=== PATIENT | female | born 1960 | race Caucasian/White ===

== ENCOUNTER → 2017-02-13 | Outpatient (CLI) | payer BC ==
[~2017-02-13] MED LIST: ACET-2321 PO; ASPI-917 PO; CHOL500050 PO; GABA-336 PO; NAPR220T61 PO; POLY17PO18 PO; TRAM50TA53 PO
--- NOTE | 2017-02-13 14:49 | DI ---
EXAM: KNEE LEFT 3 VIEWS DATE: 02/13/2017 2:28 PM ENCOUNTER: Subsequent INDICATION: ITS.REASON: M25.562 PAIN IN LEFT KNEE COMPARISON: Left knee radiographs 03/22/2016, left knee MRI 02/01/2016 TECHNIQUE: 3 views of the knee were obtained. FINDINGS: Bony mineralization is normal. Redemonstration of postoperative changes of left total knee arthroplasty. The hardware components appear appropriately aligned without evidence of acute hardware complication. No periprosthetic fracture. No significant joint effusion. No focal radiographically apparent soft tissue swelling seen. No radiopaque foreign body. IMPRESSION: Stable appearing postoperative changes of left total knee arthroplasty without evidence of acute hardware complication or osseous abnormality. .
== END ==
LOC: IMA 14:25
PROVIDERS: ATTEND Orthopaedic Surgery
DX: M25.562 Pain in left knee (principal); Z96.652 Presence of left artificial knee joint

== ENCOUNTER 2017-11-14 07:30 | Inpatient (IN) ==
[~2017-11-14 07:30] MED LIST changes: -ACET-2321 PO; +ACETAMINOPHEN 500 MG TABLET PO ONE; -ASPI-917 PO; -CHOL500050 PO; +DEXAMETHASONE 4 MG/ML INJECTION IVP ONE; +FAMOTIDINE PB 20 MG/50 ML BAG IV ONE; -GABA-336 PO; +LIDOCAINE 1% (10mg/ml) 2mL INJ PF SDV ID ONE; +MELOXICAM 15 MG TABLET PO ONE; +METOCLOPRAMIDE 10mg/2ml INJECTION IVP ONE; -NAPR220T61 PO; +ONDANSETRON 4 MG/2 ML INJECTION IVP ONE; -POLY17PO18 PO; -TRAM50TA53 PO; +TRANEXAMIC ACID 1,000 MG in NS 100 ML IV ONE
[2017-11-14] MEDS ORDERED: EPINEPHrine PF 0.25 MG, BUPIVACAINE 0.25% PF 30 ML, MORPHINE SULFATE 15 MG, KETOROLAC I... OPSITE ONE (08:00)
--- OUTSIDE RECORDS SUMMARY | 2017-11-14 10:41 | External Medical Summary | Continuity of Care Document ---
:[address] [facility] Allergies Active Description Code Type Severity Reaction Onset Reported/ Identified Relationship Clinical to Patient Status Yes No Known No Drug Unknown N/A 10/06/2017 Allergies Known Aller Aller gy gies Medications There is no data. Problems There is no data. Procedures There is no data. Results Test Result Range CBC W/DIFF - 10/06/17 09:10 BASOPHIL # 0.1 k/cumm 0.0-0.2 BASOPHIL % 0.8 % 0-1 EOSINOPHIL # 0.2 k/cumm 0.1-0.5 EOSINOPHIL % 2.9 % 2-4 GRANULOCYTE # 4.6 k/cumm 2.0-9.0 GRANULOCYTE % 59.0 % 50-75 LYMPHOCYTE # 2.2 k/cumm 1.0-4.0 LYMPHOCYTE % 28.6 % 20-30 MEAN CELL HGB 28.2 pg 27.0-33.0 MEAN CELL HGB CONCENTRATION 32.7 g/dL 32.0-37.0 MEAN CELL VOLUME 86.2 fl 80.0-100.0 MONOCYTE # 0.7 k/cumm 0.1-1.0 MONOCYTE % 8.4 % 4-6 MEAN PLATELET VOLUME 10.7 fl 8.5-10.9 RED BLOOD CELL 4.65 m/cumm 4.00-6.00 RED CELL DISTRIBUTION WIDTH 13.4 % 11.0-15.6 WHITE BLOOD CELL 7.8 k/cumm 5.0-10.0 HEMOGLOBIN 13.1 gm/dL 12.0-16.0 HEMATOCRIT 40.1 % 37.0-47.0 NRBC % 0.0 /100 WBC 0.0-0.0 PLATELET COUNT 263 k/cumm 150-400 IMMATURE GRANULOCYTE % 0.3 % 0.0-0.6 IMMATURE GRANULOCYTE # 0.02 k/cumm 0.00-0.09 PROTHROMBIN TIME WITH INR - 10/06/17 09:10 INTERNATIONAL NORMAL RATIO 1.1 0.9-1.1 PROTHROMBIN TIME 12.3 sec 10.0-12.8 METABOLIC PANEL, COMPREHN - 10/06/17 09:10 POTASSIUM 3.6 mmol/L 3.5-5.3 EST GFR (MDRD) > 60 mL/min > 59 ANION GAP 11 mmol/L 5-15 GLUCOSE 97 mg/dL 70-99 CALCIUM 8.9 mg/dL 8.5-10.1 BLOOD UREA NITROGEN 16 mg/dL 7-20 CREATININE 0.7 mg/dL 0.6-1.0 SODIUM 142 mmol/L 135-148 CHLORIDE 107 mmol/L 98-110 AST/SGOT 23 Units/L 10-37 ALT/SGPT 28 Units/L < 66 CARBON DIOXIDE 24 mmol/L 21-32 TOTAL PROTEIN 8.0 gm/dL 6.4-8.2 ALBUMIN 3.9 gm/dL 3.4-5.0 BILI TOTAL 0.4 mg/dL 0.0-1.0 ALKALINE PHOSPHATASE TOTAL 141 IU/L 45-117 Encounters ACCT Visit Discharge Status Pt. Type Provider Facility Loc./Unit Complaint No. Date/Time [id number] 10/06/2017 10/06/2017 [id number] 08:25:00 13:05:00 , [facility]
[2017-11-14 11:04] VITALS: BP 165/74; PULSE 87; RESP 14; TEMP 98.1; O2SAT 98; BMI 38.8
[2017-11-14] MEDS ORDERED: SALINE FLUSH 10ml SYRINGE IV PRN (13:02)
[2017-11-14] MEDS ORDERED: NOZIN NASAL SWAB NAS SCH (13:15)
[2017-11-14] MEDS ORDERED: LR 1,000 ML IV SCH (16:00)
== END 2017-11-14 11:15 | disposition home or self-care (01) | DRG 561 ==
LOC: NMC.PERIOP 10:33 → UNDODISIN 11:15
PROVIDERS: ADMIT Orthopaedic Surgery; ATTEND Orthopaedic Surgery

== ENCOUNTER 2017-11-21 09:50 | Inpatient (IN) ==
--- NOTE | 2017-12-20 17:34 | History and Physical ---
CHIEF COMPLAINT Left knee pain. HPI This is a 57-year-old lady that had a left total knee replacement in March 2016. Following surgery she developed arthrofibrosis with considerable stiffness of the left knee. She has tried aggressive physical therapy, anti-inflammatory medications and other modalities but has failed to obtain adequate range of motion of the knee. She has considerable anterior knee pain with any type of knee flexion. In general, she is moderately disabled as a result of her pain and stiffness. Her x-rays are essentially unremarkable. A bone scan was done and does not suggest loosening or infection. Due to her persistent pain and lack of response to conservative measures she is being admitted for elective left total knee revision. ALLERGIES No known drug allergies. ILLNESSES History of CRPS as well as chronic osteoarthritis. PAST SURGICAL HISTORY Arthroscopy of the knee. Cholecystectomy. Hysterectomy. Left total knee in March 2016. . FAMILY HISTORY/SOCIAL HISTORY Unchanged from a copy of dictation in the chart. REVIEW OF SYSTEMS REVIEW OF SYSTEMS Constitutional: Negative for chills, fever, fatigue, malaise, or weight loss. HEENT: Negative for headache, or dizziness. Respiratory: Negative for cough, shortness of air, recent respiratory infections, or wheezing. Cardiovascular: Negative for chest pain, palpitations, leg swelling, or syncope. Gastrointestinal: Negative for abdominal pain, constipation, diarrhea, vomiting , heartburn, or nausea. Skin: Negative for skin infection or rash. Neurological: Negative for numbness of extremity or seizures. Psychiatric: Negative for anxiety or depression. Hematologic/Lymphatic: Negative for easy bleeding or easy bruising. PHYSICAL EXAM GENERAL: A well-developed, well-nourished 57-year-old female in no acute distress. PSYCHOLOGIC: Alert and oriented with normal mood and affect. SKIN: Well-healed scar over the anterior aspect of the knee. No erythema, warmth or signs of infection. CARDIOVASCULAR: She has good pulses involving the lower extremity. No other abnormalities. No edema. NEUROLOGIC: Intact with normal sensation. Good sensory and motor function. MUSCULOSKELETAL: The right knee is tender over the anterior aspect of the knee. She has 0-100 degrees range of motion. Ligamentous-blas she is very stable. Alignment of the knee is neutral. IMPRESSION 1. 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 2. History of CRPS. PLAN Dr. Calderon has met with the patient and discussed the surgical procedure as well as alternative treatments, potential complications and other questions related to this surgery. The patient is aware that she may continue to have knee pain following revision. Will plan to proceed with a left total knee revision on 05/2018. JULITO
[2017-12-26] MEDS ORDERED: MELOXICAM 15 MG TABLET PO ONE (06:00)
[2017-12-26] MEDS ORDERED: ACETAMINOPHEN 500 MG TABLET PO ONE (06:00)
[2017-12-26] MEDS ORDERED: TRANEXAMIC ACID 1,000 MG in NS 100 ML IV ONE ×2 (06:00→07:00)
[2017-12-26] MEDS ORDERED: LIDOCAINE 1% (10mg/ml) 2mL INJ PF SDV ID ONE (06:00)
[2017-12-26] MEDS ORDERED: FAMOTIDINE PB 20 MG/50 ML BAG IV ONE (06:00)
[2017-12-26] MEDS ORDERED: DEXAMETHASONE 4 MG/ML INJECTION IVP ONE (06:00)
[2017-12-26] MEDS ORDERED: METOCLOPRAMIDE 10mg/2ml INJECTION IVP ONE (06:00)
[2017-12-26] MEDS ORDERED: ONDANSETRON 4 MG/2 ML INJECTION IVP ONE (06:00)
[2017-12-26] MEDS ORDERED: EPINEPHrine PF 0.25 MG, BUPIVACAINE 0.25% PF 30 ML, KETOROLAC INJ 60 MG in NS 30 ML OPSITE ONE (08:00)
--- OUTSIDE RECORDS SUMMARY | 2017-12-26 10:12 | External Medical Summary | Continuity of Care Document ---
:1960 Author Organization [facility] Allergies Active Description Code Type Severity Reaction [...] Type Provider Facility Loc./Unit Complaint No. Date/Time [id number] 10/06/2017 10/06/2017 [id number] 13:05:00 , [facility]
[2017-12-26] MEDS ORDERED: CEFAZOLIN 1 G INJECTION IVP ONE (10:22)
[2017-12-26 10:30] VITALS: BMI 38.4
[2017-12-26] MEDS: LR 1,000 ML IV SCH ×2 (11:06→13:00)
[2017-12-26] MEDS: NOZIN NASAL SWAB NAS SCH ×5 (11:08→21:21)
--- NOTE | 2017-12-26 12:07 | Anesthesia Preoperative Report ---
Anesthesia Preoperative Record - Date and Time Date: 12/26/17 Preoperative Diagnosis: Total Knee Arthroplasty Revision for the Patella, Proposed Procedure: left total knee replacement NPO Since Date: 12/25/17 NPO Since Time: 23:00 Allergies/Adverse Reactions: Allergies Allergy/AdvReac Type Severity Reaction Status Date / Time No Known Allergies Allergy Verified 11/06/17 11:17 - Vital Signs Vital Signs: Temperature 98.6 F 12/26/17 10:29 Pulse Rate 81 12/26/17 10:42 Respiratory Rate 14 12/26/17 10:29 Blood Pressure 149/70 H 12/26/17 11:18 Pulse Oximetry 100 12/26/17 10:29 Height and Weight: Height 1.6 m Weight 98.3 kg Body Mass Index 38.4 - Medications Inpatient Medications: Current Medications Lactated Ringer's (Lactated Ringers) 1,000 mls @ 50 mls/hr IV .Q20H ELIZABETH Last Admin: 12/26/17 11:06 Dose: 50 mls/hr Isopropyl Alcohol (Nozin Nasal Swab) 1 each BRANDI Q1M ELIZABETH Stop: 12/26/17 15:33 Last Admin: 12/26/17 11:18 Dose: 1 each Sodium Chloride (Iv Flush) 10 - 80 ml IV PRN PRN PRN Reason: Flushing Home Medications: Home Medications Medication Instructions Recorded Confirmed Type Aleve (Naproxen) 220 mg capsule 220 mg PO BID PRN 05/17/17 12/26/17 History ergocalciferol (vitamin D2) 50,000 50,000 unit PO DAILY #2 cap 11/06/17 Rx unit capsule - Medical History Respiratory: DENIES: Sleep Apnea Gastrointestional: Reports: Gastroesophageal Reflux Disease (RARE), Morbid Obesity Neuro/Musculoskeletal: Reports: HX.MS.OSAR (KNEES) - Surgical History Cardiac Surgeries/Treatments: Reports: Cardiac Catheterization (THOUGHT PULSE WAS WEAK-NON CARDIAC-OCT 2017) GI Surgery/Treatments: Reports: Appendectomy, Cholecystectomy (lap), Hernia Repair (umb hernia repair), Colonoscopy (tubular adenoma), EGD, Other (inc biopsy Lt upper back) Musculoskeletal Surgery/Tx: Reports: Knee Arthroscopy (left), Total Knee Replacement (left TKA 2015) Reproductive Surgery/Treatment: Reports: Section (x2), Hysterectomy ( abdominal) Anesthesia Reactions: None Hx Family Anesthesia Reaction: No - Social History Smoking Status: Never smoker Substance Use Type: does not use Alcohol Intake Frequency: holidays/special occasions only - Pertinent Findings EKG: Sinus Rhythm - Physical Exam Respiratory Exam: Present: lungs clear, bilateral breath sounds equal Cardiovascular Exam: Present: regular rate and rhythm, no murmur - Airway Assessment Mallampati Score: III TMD: 2 Fingerbreadths Neck Extension: good Overall Assessment: may be difficult intubation - ASA ASA Score: 3 - Plan Regional/Trunk Block: Spinal Peripheral Nerve Block: Saphenous-Left - Discussion Discussion: Discussed risks/options/alternatives of anesthesia and questions answered. Patient consents. Nursing pain assessment noted. Attestation Statement: Prior to the delivery of any anesthetic medication, I examined the patient, developed the plan, obtained the patient's consent and discussed the risk and benefits of the procedure with the patient/guardian. - Additional Information Seen by Anesthesia: Yes
[2017-12-26] MEDS ORDERED: VANCOMYCIN 1,000 MG INJECTION ONE (12:12)
[2017-12-26] MEDS ORDERED: PROPOFOL 20 ML ONE (12:17)
[2017-12-26] MEDS ORDERED: MIDAZOLAM 2mg/2ml INJECTION ONE (12:17)
[2017-12-26] MEDS ORDERED: FentaNYL 250 MCG/5 ML INJECTION ONE (12:17)
[2017-12-26] MEDS ORDERED: KETAMINE 500 MG/10 ML INJECTION ONE (12:17)
[2017-12-26] MEDS ORDERED: LIDOCAINE 2% (100mg/5mL) 5ml PF SDV ONE (12:24)
[2017-12-26] MEDS ORDERED: BUPIVACAINE 0.75%/DEXTROSE 8.5% SPINAL 2 ML AMPULE IJ ONE (12:24)
--- NOTE | 2017-12-26 12:50 | Anesthesia Procedure Note ---
Peripheral Nerve Blockade - Procedure Physician: Dhaval Calderon MD Date: 12/26/17 Surgical Procedure: left total knee arthroplasty Discussion: Discussed risks/options/alternatives of anesthesia and questions answered. Patient consents. Nursing pain assessment noted. Block Start: 11:54 Block Stop: 11:56 Blocked Employed: Adductor Canal Indication: Post-Operative Pain Approach: Left Side Confirmed Position: Supine Patient: Consent, Risks/Benefits Discussed, Informed, Post Block Act. Discussed Initial Vital Signs: Temperature 98.6 F 12/26/17 10:29 Temperature Source Oral 12/26/17 10:29 Pulse Rate 77 12/26/17 10:29 Respiratory Rate 14 12/26/17 10:29 Blood Pressure 163/78 H 12/26/17 10:29 Blood Pressure Mean 106 12/26/17 10:29 Blood Pressure Position Sitting 12/26/17 10:29 Pulse Oximetry 100 12/26/17 10:29 Oxygen Delivery Method 12/26/17 10:29 Post Vital Signs: Temperature 98.6 F 12/26/17 10:29 Pulse Rate 81 12/26/17 10:42 Respiratory Rate 14 12/26/17 10:29 Blood Pressure 149/70 H 12/26/17 11:18 Pulse Oximetry 100 12/26/17 10:29 Initial Pain Pain Score: 0 Post Block Pain Score: 0 Prep: Chlorhexadine/ETOH Ultrasound Used?: Yes - Injectate Ropivacaine (%): 0.5 Ropivacaine (mL): 15 Injection: Injection made incrementally with constant monitoring and aspiration every ml
--- NOTE | 2017-12-26 12:51 | Anesthesia Postoperative Note ---
- Date and Time Date: 12/26/17 Time: 12:05 - Status Patient Participated in Evaluation: Patient Participated in Person Vital Signs: Temperature 98.6 F 12/26/17 10:29 Pulse Rate 81 12/26/17 10:42 Respiratory Rate 14 12/26/17 10:29 Blood Pressure 149/70 H 12/26/17 11:18 Pulse Oximetry 100 12/26/17 10:29 Respiratory Function: Airway Patent Cardiovascular Function: Regular Pulse EKG: Sinus Rhythm Mental Status: Alert and Oriented Pain Intensity: 0 Hydration: IV Infusing Complications During Recover: None Apparent - Follow-Up Instructions Instructions: Per Surgeon
[2017-12-26] MEDS ORDERED: FentaNYL 100 MCG/2 ML INJECTION IVP PRN (13:38)
[2017-12-26] MEDS ORDERED: ONDANSETRON 4 MG/2 ML INJECTION IVP PRN ×2 (13:38→14:56)
[2017-12-26] MEDS ORDERED: ROPIVACAINE 0.5% (5mg/ml) 30ml INJ ONE (13:42)
[2017-12-26] MEDS ORDERED: VANCOMYCIN 1,000 MG INJECTION IAR ONE (13:55)
--- NOTE | 2017-12-26 14:47 | XRay Report ---
Indication: postoperative image PROCEDURE: XR knee LT 2V: Encounter: Initial Comparison: February 13, 2017 Findings: Postoperative changes of left total knee revision are seen. There is expected postoperative subcutaneous gas. No evidence of hardware failure or acute fracture. No retained radiopaque surgical instruments or sponges. Overlying material causing artifact. Impression: Revision of the left total knee prosthesis without evidence of immediate complication. .
[2017-12-26] MEDS ORDERED: DiphenhydrAMINE 25 MG CAPSULE PO PRN (14:56)
[2017-12-26] MEDS ORDERED: DiphenhydrAMINE 50 MG/ML INJECTION IVP PRN (14:56)
[2017-12-26] MEDS ORDERED: LORazepam 1 MG TABLET PO PRN (14:56)
[2017-12-26] MEDS ORDERED: Oxycodone *IR* 5 MG TABLET PO PRN (14:56)
[2017-12-26] MEDS ORDERED: NOZIN NASAL SWAB NAS ONE (14:56)
[2017-12-26] MEDS: NS 1,000 ML IV SCH (14:58)
[2017-12-26] MEDS ORDERED: SALINE FLUSH 10ml SYRINGE IV PRN (15:16)
--- NOTE | 2017-12-26 16:22 | Operative Note ---
DATE OF SURGERY 12/26/2017 PREOPERATIVE DIAGNOSIS Painful left total knee arthroplasty with arthrofibrosis. POSTOPERATIVE DIAGNOSIS Painful left total knee arthroplasty with arthrofibrosis. OPERATION Left total knee arthroplasty patella revision with excision of scar tissue. SURGEON Dayanna Calderon MD CURRICULUM COACH Marko Verduzco PA-C COMPLICATIONS None. ANESTHESIA Spinal. DESCRIPTION OF PROCEDURE Mrs. Eugene and her left knee were identified and marked in the preoperative holding area. She was brought back to the operating suite and placed supine on the operating table. Spinal anesthetic was administered before she was laid flat. The left lower extremity was prepped and draped in my normal sterile fashion. Time-out was performed. I took the knee through a range of motion - she was nice and stable and had full extension. No mid flexion instability was noted. I could flex her easily to 95 degrees without any undue force. I then made an anterior midline incision through her previous incision site. Sharp dissection was carried through the subcutaneous tissue down to the capsule and a medial parapatellar capsulotomy was performed. She did have abundant scar tissue within the joint itself which was removed sharply and also with electrocautery. Scar tissue around the patella was also removed. The patella itself seemed to be in good position and intact without signs of loosening. Both femoral and tibial components as well as the plastic also seemed to be in good condition. Again, she really did appear well balanced and she tracked well throughout range of motion. I placed a Simon medially and laterally with the knee in 90 degrees of flexion and she had good 1-2 mm of play. It was well balanced. Her PCL was not too tight. I then measured her patella construct and it measured 23 mm. I then removed the old patella with a saw and took off another 2 mm with the saw. I then placed a new 29-mm patella. Overall measurement was 21 mm and did seem to help with her motion. I could get her back to 110-115 degrees after removal of scar tissue and resurfacing the patella. The wound was thoroughly irrigated. The new patella was cemented into position and allowed to cure in extension. Electrocautery was used to obtain hemostasis. Joint cocktail was injected into the soft tissue. The capsulotomy was repaired with #1 Vicryl. Subcutaneous tissue was closed with 2-0 Vicryl and the skin was closed with a running 2-0 Monoderm. A sterile dressing will be placed. Drapes will be removed and she will be taken to the recovery room under the care of Anesthesia. She tolerated the procedure well. There were no complications. JULITO
[2017-12-26] MEDS: ACETAMINOPHEN 325 MG TABLET PO SCH ×2 (16:34→20:57)
[2017-12-26] MEDS: GABAPENTIN 100 MG CAPSULE PO SCH ×2 (16:34→20:57)
[2017-12-26] MEDS: CEFAZOLIN 2 G in NS 50 ML IV SCH (20:56)
[2017-12-26] MEDS: NAPROXEN 220 MG TABLET PO SCH (20:57)
[2017-12-26] MEDS: DOCUSATE SODIUM 100 MG CAPSULE PO SCH (20:57)
[2017-12-26] MEDS: ASPIRIN *EC* 81 MG TABLET PO SCH (20:58)
[2017-12-26] MEDS ORDERED: SENNOSIDES 8.6 MG TABLET PO SCH (21:00)
[2017-12-27] MEDS: NS 1,000 ML IV SCH (03:54)
[2017-12-27] MEDS: CEFAZOLIN 2 G in NS 50 ML IV SCH (03:54)
[2017-12-27] MEDS: NOZIN NASAL SWAB NAS SCH ×2 (05:13→13:20)
[2017-12-27 07:35] VITALS: RESP 16
--- NOTE | 2017-12-27 08:41 | Orthopedic Progress Note ---
Date: Date: 12/27/17 Time: 837 Subjective/Severity of Illness: Patient is up ambulating when visiting this morning. Pain has been well controlled. Denies chest pain, soa, or any other complaints. Exam - Constitutional Vital Signs: Temperature 97.8 F 12/27/17 07:34 Pulse Rate 76 12/27/17 07:34 Respiratory Rate 16 12/27/17 07:34 Blood Pressure 103/48 12/27/17 07:34 Pulse Oximetry 95 12/27/17 07:34 General: cooperative, no acute distress, well developed, well groomed Nutritional Appearance: well nourished Orientation: alert, oriented x3 - Psych Mood: normal Attitude: cooperative - LLE General: normal to inspection Postoperative Appearance: normal postoperative swelling, knee range of motion normal for postoperative timeframe, neurovascullary intact to extremities Neurological: no deficits Vascular: dorsalis pedis pulse within normal limits - Respiratory Respiratory Exam: non-labored - Cardiac Cardiovascular exam: pedal pulses intact - Wound Left Knee Wound Drainage Amount: None (mepilex dressing c/d/i) - Labs Result Diagrams: 12/27/17 04:05 12/27/17 04:05 Abnormal lab results 12/27/17 Range/Units 04:05 Sodium 145 H (134-144) MEQ/L Chloride 109 H (98-107) MEQ/L Creatinine 0.6 L (0.7-1.2) mg/dL Glucose 144 H (65-110) MG/DL Calculated Osmolality 282 H (261-280) MOSM/KG H & H 12/27/17 Range/Units 04:05 Hgb 12.2 (12-16) GM/DL Orthopedic Assessment and Plan (1) Arthrofibrosis of total knee arthroplasty Status: Acute Assessment and Plan: Current anti-coagulation of ASA 81mg BID x6 weeks and SCDs for VTE prophylaxis. Will plan to titrate Gabapentin for CRPS upon discharge. Expect discharge today. PT/OT services to improve independent function. Discharge Planning per Case Management. - Anticoagulation Therapy Anticoagulation: ASA 81 mg PO BID x6 weeks Hospital Course Summary Disclaimer: The visit summary below is not to be considered part of the above Progress Note.
[2017-12-27] MEDS: ACETAMINOPHEN 325 MG TABLET PO SCH ×2 (08:54→13:20)
[2017-12-27] MEDS: ASPIRIN *EC* 81 MG TABLET PO SCH (08:54)
[2017-12-27] MEDS: NAPROXEN 220 MG TABLET PO SCH (08:54)
[2017-12-27] MEDS: GABAPENTIN 100 MG CAPSULE PO SCH ×2 (08:54→14:30)
[2017-12-27] MEDS: DOCUSATE SODIUM 100 MG CAPSULE PO SCH (08:54)
[2017-12-27] MEDS ORDERED: POLYETHYL GLYCOL 3350 17gm PACKET PO SCH (09:00)
[2017-12-27 12:01] VITALS: BP 136/66; PULSE 63; TEMP 97.6; O2SAT 100
[2017-12-27] MEDS ORDERED: SENNOSIDES 8.6 MG TABLET PO PRN (13:53)
--- NOTE | 2017-12-27 14:40 | Discharge Summary ---
Orthopedic Discharge Info Date of admission: 12/26/17 10:05 Anticipated date of discharge: 12/27/17 Primary care physician: Issac Osorio DO Attending Physician: Dhaval Calderon MD Consults: 12/26/17 10:20 Consult to Anesthesiology [CONS] Routine Reason For Exam: Preoperative Assessment 12/26/17 14:56 Case Management Consult [CONS] Routine Reason For Exam: Discharge Planning DME-Walker [CONS] Routine Height: 5 ft 3 in Weight: 98.3 kg Total Joint Outpatient Therapy [CONS] Routine Comment: Remove dressing in 2 weeks - Discharge Diagnosis (1) Arthrofibrosis of total knee arthroplasty Status: Acute - Procedures Procedures: Procedures Replacement of Left Knee Joint with Synthetic Substitute, Cemented, Open Approach (03/22/16) - Laboratory Result Diagrams: 12/27/17 04:05 12/27/17 04:05 Laboratory: Abnormal lab results 12/27/17 Range/Units 04:05 Sodium 145 H (134-144) MEQ/L Chloride 109 H (98-107) MEQ/L Creatinine 0.6 L (0.7-1.2) mg/dL Glucose 144 H (65-110) MG/DL Calculated Osmolality 282 H (261-280) MOSM/KG H & H 12/27/17 Range/Units 04:05 Hgb 12.2 (12-16) GM/DL Orthopedic Discharge HPI - HPI Comments This patient was admitted for elective surgical tx of end stage degenerative joint disease that failed to respond to conservative treatment. Further details of this is found in the admission H&P. Orthopedic Hospital Course Hospital course: 12/27/17 14:33 After appropriate preoperative clearance and signing of operative consent, the patient was given IV antibiotics, according to orthopedic protocol. The patient was taken to the operating room and underwent elective Left TKA revision with patella component only Following surgery, antibiotics were discontinued less than 24 hours according to joint protocol. Appropriate anticoagulants of ASA 81mg BID were initiated and SCDs added for DVT prevention. The dressing was clean, dry, and intact. Pain control was obtained via multimodal approach. Bowel motivation addressed with scheduled and PRN medications. Early mobilization was initiated through PT services. Discharge arrangements made by a collaborative effort between the patient and Case Management. Will increase Gabapentin upon discharge for CRPS. Follow-up is scheduled in 2-3 weeks. Discharge instructions given by orthopedic providers and nursing staff at discharge. Patient stable, discharge condition was good. Care extended to > 2 midnight stays?: No Discharge Plan - Med Rec/Dispo Referrals/Follow Up: Dhaval Calderon MD [Physician] - 01/17/18 1:45 pm Jeff Instructions: [facility] Postop Instructions Prescriptions: New Acetaminophen [Tylenol] 650 mg PO QID tablet Aspirin *EC* [Ecotrin] 81 mg PO BID tablet Docusate Sodium [Colace] 100 mg PO BID capsule Milk of Magnesia [Mom] 30 ml PO DAILY udc Oxycodone *IR* [Roxicodone *Ir*] 5 - 15 mg PO Q3H PRN #60 tab PRN Reason: Breakthrough Pain Gabapentin [Neurontin] 100 mg PO TID #100 cap PEG 3350 17gm PACKET [Miralax] 17 gm PO DAILY packet Continue Aleve (Naproxen) 220 mg capsule 220 mg PO BID PRN PRN Reason: Pain ergocalciferol (vitamin D2) 50,000 unit capsule 50,000 unit PO DAILY #2 cap - Disposition 01 Discharged Home, Self-Care - Dismissal Complete Discharge Instructions are:: Complete
[2017-12-28] MEDS ORDERED: BISACODYL 10 MG SUPPOSITORY RECTALLY SCH (20:00)
== END 2017-12-27 15:25 | disposition home or self-care (01) | DRG 468 ==
LOC: NMC.PERIOP 12-26 10:05 → SRG 12-26 14:45
PROVIDERS: ADMIT Orthopaedic Surgery; ATTEND Orthopaedic Surgery